=== PATIENT | female | born 1945 | race Caucasian/White ===

== ENCOUNTER → 2019-10-13 15:16 | Outpatient (CLI) | payer MEDICARE, MEDICAID, SELFPAY | PROVIDERS: PCP Family Medicine; Visit Provider Specialist | DX: G43.919 Migraine, unspecified, intractable, without status migrainosus (principal); G47.30 Sleep apnea, unspecified; R20.2 Paresthesia of skin; R53.83 Other fatigue; R63.4 Abnormal weight loss; Z72.0 Tobacco use; Z86.2 Personal history of diseases of the blood and blood-forming organs and certain disorders involving the immune mechanism | CPT/HCPCS: 94762 ==

== ENCOUNTER → 2019-10-27 07:56 | Outpatient (CLI) | payer MEDICARE, MEDICAID, SELFPAY | PROVIDERS: Visit Provider Nurse Practitioner Family | DX: R20.2 Paresthesia of skin (principal) | CPT/HCPCS: 36415; 80053; 82607; 84443; 85025; 85651; 86140 ==

== ENCOUNTER → 2019-10-27 08:14 | Outpatient (POV) | payer MEDICARE, MEDICAID, SELFPAY | PROVIDERS: PCP Family Medicine; Visit Provider Specialist | DX: G43.909 Migraine, unspecified, not intractable, without status migrainosus (principal) | CPT/HCPCS: 95819 ==

== ENCOUNTER → 2019-10-27 09:48 | Outpatient (CLI) | payer MEDICARE, MEDICAID, SELFPAY ==
[2019-10-27 08:12] LABS: Basophils % 0.6 % (0.1-2.0); Eosinophils # 0.4 K/mm3 (0.0-0.4); Eosinophils % 6.4 % (0.1-12.0); Hematocrit 37.7 % (37.0-47.0); Hemoglobin 12.3 g/dL (12.2-16.2); Lymphocytes # 1.9 K/mm3 (0.7-4.5); Lymphocytes % 29.4 % (10-50); Mean Corpuscular HGB Conc 32.8 g/dL (31.8-35.4); Mean Corpuscular Hemoglobin 31.6 pg (27.0-31.2); Mean Corpuscular Volume 96.5 fl (81-99); Mean Platelet Volume 7.6 fl (7.4-10.4); Monocytes # 0.4 K/mm3 (0.1-1.0); Monocytes % 5.4 % (1.7-9.3); Neutrophils # 3.8 K/mm3 (1.8-7.8); Neutrophils % 58.2 % (37.0-80.0); Platelet Count 207 K/mm3 (142-424); Red Cell Distribution Width 13.2 % (11.5-17.5); White Blood Count 6.5 K/mm3 (4.8-10.8)
[2019-10-27 09:24] LABS: Erythrocyte Sedimentation Rate 10 mm/hr (0-30)
[2019-10-27 09:28] LABS: Chloride 110 mmol/L (98-107); Potassium 3.7 mmoL/L (3.5-5.1); Sodium 141 mmol/L (136-145)
[2019-10-27 09:30] LABS: Alkaline Phosphatase 60 U/L (38-126); Aspartate Amino Transferase 17 U/L (14-36); Bilirubin,Total 0.4 mg/dl (0.2-1.3); Blood Urea Nitrogen 9 mg/dl (7-17); Estimated Glomerular Filt Rate 70 ml/min (>60); GFR (African American) 85 ML/MIN (>60)
[2019-10-27 09:31] LABS: Albumin Level 3.8 g/dl (3.5-5.0); Albumin/Globulin Ratio 1.7 (1.1-1.8); Anion Gap 8.7 mEq/L (5-15); Carbon Dioxide 26 mmol/L (22.0-30.0); Globulin 2.3 g/dL (1.3-3.2); Total Protein,Serum 6.1 g/dl (6.3-8.2)
[2019-10-27 09:36] LABS: C-Reactive Protein 0.4 mg/L (0-4)
[2019-10-27 09:37] LABS: Calcium 9.6 mg/dl (8.4-10.2)
--- NOTE | 2019-10-27 09:48 | CT_ITS ---
Procedure: CT ANGIO NECK CLINICAL HISTORY: tia Headaches, carotid artery stenosis COMPARISON: No exams were available for comparison TECHNIQUE: IV Contrast: 100ml Optiray 350 Axial images obtained with sagittal and coronal reformats. All CT scans at the facility use one or more dose reduction, viz: automated exposure control, ma/kV adjustment per patient size (including targeted exams where dose is matched to indication, i.e. head), or iterative reconstruction technique. FINDINGS: There are mild atheromatous changes of the aortic arch with some scattered calcific plaque. No significant stenosis of the great vessels. There is approximately 20 percent stenosis of the ostium the left subclavian artery Right carotid: Calcific plaque is present at the bifurcation but no significant stenosis. Soft plaque is present involving the carotid bulb on the right with shallow ulceration. There is approximately 30 percent stenosis of the ostium of the right internal carotid. There does appear to be a shallow ulcer involving the proximal aspect of the right internal carotid artery. The internal carotid arteries assumes a retropharyngeal approach. No significant stenosis of the internal carotid artery on the right. Left carotid artery: There is some scattered calcific plaque of the left common carotid and bifurcation. There is 30 percent stenosis involving the ostium of the left internal carotid artery. The vertebral arteries have an unremarkable appearance. IMPRESSION: Approximately 30 percent stenosis involving the ostium of both internal carotid arteries. There is a shallow ulcer on the right in the bulb of the internal carotid. Some scattered atheromatous changes are present. There is also retropharyngeal location of the internal carotids on both sides. Dictated by: Channing Hu MD 10/28/2019 19:25 Electronically signed by Chaninng Hu MD in [facility] 10/28/2019 19:25
--- NOTE | 2019-10-27 09:48 | CT_ITS ---
Procedure: CT ANGIO HEAD CLINICAL HISTORY: tia Severe headache. Carotid artery stenosis, TIAs COMPARISON: No exams were available for comparison TECHNIQUE: IV Contrast: 100ml Optiray 350 Axial images obtained with sagittal and coronal reformats. All CT scans at the facility use one or more dose reduction, viz: automated exposure control, ma/kV adjustment per patient size (including targeted exams where dose is matched to indication, i.e. head), or iterative reconstruction technique. FINDINGS: Calcific plaque involves the intracranial portion of both internal carotid arteries. No major intracranial occlusive process is evident. No aneurysm or arteriovenous malformation apparent. No enhancing lesions. IMPRESSION: Atheromatous changes of the intracranial portion of the carotid arteries but no significant stenosis. No aneurysm or other significant anomaly. Dictated by: Channing Hu MD 10/28/2019 19:14 Electronically signed by Channing Hu MD in [facility] 10/28/2019 19:14
[2019-10-27 09:50] LABS: Alanine Aminotransferase 5 U/L (12-78)
[2019-10-27 10:02] LABS: Thyroid Stimulating Hormone 2.48 uIU/mL (0.465-4.68)
[2019-10-27 10:46] LABS: Glucose 101 mg/dl (74-100)
[2019-10-28 09:51] LABS: Vitamin B12 1274 pg/mL (232-1245)
== END ==
PROVIDERS: Nurse Practitioner Family; PCP Family Medicine; Visit Provider Specialist
DX: G43.919 Migraine, unspecified, intractable, without status migrainosus (principal); G47.30 Sleep apnea, unspecified; G93.40 Encephalopathy, unspecified; I99.8 Other disorder of circulatory system; R20.2 Paresthesia of skin; R53.83 Other fatigue; R63.4 Abnormal weight loss; Z72.0 Tobacco use; Z86.2 Personal history of diseases of the blood and blood-forming organs and certain disorders involving the immune mechanism
CPT/HCPCS: 36415; 70496; 70498; 80053; 82607; 84443; 85025; 85651; 86140; 95819; Q9967